=== PATIENT | male | born 1955 | race Hispanic/Latino ===

== ENCOUNTER 2017-07-05 12:06 | Emergency (ER) | payer OTHER ==
--- NOTE | 2017-07-05 12:31 | ED PDOC ---
Upper Extremity Pain/Injury Time Seen by Provider: 07/05/17 12:24 History Per: Patient Onset/Duration Of Symptoms: Days (2) Current Symptoms Are (Timing): Still Present Quality: Pressure Severity: Mild Additional Complaint(s): Swelling and redness right middle finger since yesterday. Pulled off skin/nail and then developed swelling and redness. No drainage. Past Medical History - Medical History PMH: No Chronic Diseases - Family History Family History: States: Unknown Family Hx - Home Medications Home Medications: Ambulatory Orders Medication Instructions Recorded Sulfamethoxazole/Trimethoprim 1 tab PO BID #20 tab 07/05/17 [Bactrim DS 800 mg-160 mg] - Allergies Allergies/Adverse Reactions: Allergies Allergy/AdvReac Type Severity Reaction Status Date / Time No Known Allergies Allergy Verified 07/05/17 12:25 Review of Systems Constitutional: Negative for: Fever Skin: Positive for: Other (Swelling and erythema right paronychia) Physical Exam - Physical Exam Appears: Positive for: Non-toxic, No Acute Distress Extremity: Positive for: Other (Right middle finger, erythema and swelling paronychia. I&D using 11 blade with small amount or purulent material.) Disposition - Clinical Impression Clinical Impression: Paronychia of finger - Patient ED Disposition Is Patient to be Admitted: No - Disposition Referrals: [facility] [Outside] Disposition: Routine/Home Disposition Time: 12:33 Condition: FAIR Prescriptions: Sulfamethoxazole/Trimethoprim [Bactrim DS 800 mg-160 mg] 1 tab PO BID #20 tab Instructions: Paronychia (ED)
[2017-07-05 12:36] VITALS: BP 133/94; PULSE 81; RESP 20; TEMP 97.7; O2SAT 100
== END 2017-07-05 13:13 | disposition home or self-care (01) ==
LOC: H.ER 12:06
DX: L03.011 Cellulitis of right finger (principal)